=== PATIENT | female | born 1950 | race Caucasian/White ===

== ENCOUNTER 2017-01-21 08:18 | Day surgery (SDC) | payer BC ==
[2017-01-18 12:44] LABS: HEMATOCRIT 39.5 % (36.0-48.0); HEMOGLOBIN 13.7 g/dL (12.0-16.0)
--- NOTE | ~2017-01-21 | OP ---
Record Of Operation [facility] [address] [place]. 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 PROCEDURES: Left 1st metatarsophalangeal joint arthrodesis with internal fixation. ANESTHESIA: General local anesthetic. ESTIMATED BLOOD LOSS: Minimal. COMPLICATIONS: None. INJECTABLES: Approximately 20 mL of a 1:1 mixture of Xylocaine plain and 0.5% Marcaine plain. MATERIALS: Include left first metatarsophalangeal joint Arthrex fusion plating system with locking and nonlocking screw fixation, 4-0 Vicryl, 4-0 nylon. PROCEDURE IN DETAIL: Under mild sedation, the patient was brought to the operating room and placed on the operating table in supine position. Following general anesthesia, local anesthesia obtained about the patient's left foot. Left foot and ankle was scrubbed, prepped, and draped in usual aseptic manner. Attention was directed to the procedure. Procedure #1 is left first metatarsophalangeal arthrodesis with internal fixation. Attention was directed to the dorsal aspect of the patient's left first metatarsophalangeal joint where an approximate 4-6 cm incision was made medial and parallel to the extensor tendon involving the contour of the deformity of the left first metatarsophalangeal joint. The incision was deepened to subcutaneous tissue with care being taken to identify and retract all vital neurovascular structures. All bleeders were cauterized and ligated as necessary. Linear capsular incision was made overlying the dorsal aspect of the left first metatarsophalangeal joint. Capsular tissues were reflected medial and laterally exposing the severely arthritic 1st metatarsophalangeal joint. Loose body formation and severe cartilage loss was present within the joint. Large bossing and spurring was present. Utilizing a sagittal bone saw, all bossing and spurring was resected. Next, utilizing cup and cone reamers, the head of the metatarsal and base of proximal phalanx were resected of the remaining cartilage tissue with penetration of subchondral plate performed. At this time, temporary fixation was placed on the dorsal plating system from [employer], interfrag screw was placed across the joint with excellent compression noted. A locking nonlocking screw fixation was placed throughout the plate. It should be noted that the oblong was utilized during compression of the interfrag screw. Copious irrigation ensued, fluoroscopy confirmed excellent positioning. Capsular tissues reapproximated and coapted using 4-0 Vicryl. Subcutaneous tissue was reapproximated and coapted using 4-0 Vicryl, skin was reapproximated using 4-0 nylon in an interrupted and Record Of Operation [address] [address] NAME: SELMA LANDEROS : 54 STATUS : [facility] PAT#: [id number] AGE: 66 ADM/REG DATE : 01/21/17 MR#: [id number] REPORT SERV DATE: 01/27/17 DICTATED BY: MARIMAR SOSA DATE: 01/27/17 REPORT STATUS : Draft TRANSCRIBED BY: MODL DATE: 01/27/17 continuous suture technique. A well-padded sterile dressing and well-padded CAM walker was placed about the patient's left foot and ankle. The patient tolerated the procedure and anesthesia well and was transferred to recovery room with vital signs stable and vascular status intact to all toes. Following a period of postoperative monitoring, the patient will be discharged home with the following written and oral postoperative instructions. 1. Keep dressings clean, dry, and intact. 2. Partial weightbearing as instructed with walker and boot and will follow Dr. Sosa, and will use knee walker for long distances and will follow up with Dr. Sosa in 7 to 14 days. NARCISA/LEVI [place] ArayaPChato. / [id number] CC: Laura Araya M.D.
[~2017-01-21 08:18] MED LIST: ACET500CAP PO; ALLEGRA180 PO; CELEBREX1 PO; LEVOTHYROXIN88 MCG PO; MULTIPLE VIT PO; ZANTAC150 MG PO; [UNRECOGNIZED DRUG - OTHER] PO
== END 2017-01-21 23:59 | disposition home or self-care (01) ==
LOC: SDC 08:18
PROVIDERS: Podiatrist Foot & Ankle Surgery
PROC: 0SGN04Z Fusion of Left Metatarsal-Phalangeal Joint with Internal Fixation Device, Open Approach (ICD-10-PCS; principal; 2017-01-21 09:45)
DX: M19.072 Primary osteoarthritis, left ankle and foot (principal); I10 Essential (primary) hypertension; E03.9 Hypothyroidism, unspecified; Z88.2 Allergy status to sulfonamides; Z90.49 Acquired absence of other specified parts of digestive tract; Z90.710 Acquired absence of both cervix and uterus; Z90.89 Acquired absence of other organs; Z79.1 Long term (current) use of non-steroidal anti-inflammatories (NSAID); Z79.82 Long term (current) use of aspirin; Z79.899 Other long term (current) drug therapy; Z98.890 Other specified postprocedural states
CPT/HCPCS: 76000; 80048; 85014; 85018; 93005; A9270-GY; C1713; C1769; J0690; J1170; J2250; J2405; J3010